=== PATIENT | male | born 1970 | race African-American/Black ===

== ENCOUNTER 2017-03-13 10:07 | Emergency (ER) | payer MEDICAID, SELFPAY ==
[2017-03-13] MEDS ORDERED: EPINEPHrine 1 MG/10 ML Abboject SYRINGE ONE (10:11)
[2017-03-13] MEDS ORDERED: EPINEPHrine 1 mg/ml MDV (1ml Charge) ONE (10:12)
[2017-03-13 10:29] LABS: #Basophils 0.1 thou/uL (0.0-0.2); #Eosinphils 0.2 thou/uL (0.0-0.7); #Lymphocytes 2.9 thou/uL (1.20-3.40); #Monocytes 0.6 thou/uL (0.11-0.59); #Neutrophils 4.8 thou/uL (1.40-6.50); %Basophils 1.6 % (0.0-1.0); %Eosinophils 2.7 % (0.0-10.0); %Lymphocytes 33.5 % (21.0-51.0); %Monocytes 6.8 % (0.0-10.0); %Neutrophils 55.4 % (42.0-75.0); Hemoglobin 17.2 g/dL (14.0-18.0); Mean Corpuscular HGB CONC 33.3 g/dL (32.0-36.0); Mean Corpuscular Hemoglobin 28.5 pg (27.0-31.0); Mean Corpuscular Volume 85.5 fl (80.0-94.0); Mean Platelet Volume 6.3 fL (7.4-10.4); Platelet Count 336 thou/uL (130-400); RBC Distribution Width 13.1 % (11.5-14.5); Red Blood Cell (RBC) Count 6.03 mill/uL (4.70-6.10); White Blood Cell (WBC) Count 8.6 thou/uL (4.8-10.8)
[2017-03-13] MEDS ORDERED: diphenhydrAMINE HCl 50 MG/ML 1 ML VIAL ONE (10:29)
[2017-03-13] MEDS ORDERED: methylPREDNISolone Sod Succ/PF 125 MG/2 ML VIAL ONE (10:29)
[2017-03-13 10:34] LABS: INR-International Normal Ratio 1.1; Prothrombin Time 14.4 SEC (12.0-14.7)
[2017-03-13 10:40] LABS: PTT 21.9 SEC (22.9-36.1)
[2017-03-13 10:44] LABS: ALT (SGPT) 18 U/L (8-55); AST (SGOT) 29 U/L (5-34); Albumin 4.2 g/dL (3.5-5.0); Alkaline Phosphatase 104 U/L (40-150); Anion Gap 20 mmol/L (10-20); BUN (Urea Nitrogen) 23 mg/dL (8.9-20.6); Bilirubin, Total 0.7 mg/dL (0.2-1.2); Calc. Creatinine Clearance 0 mL/min (70-130); Calcium 9.3 mg/dL (7.8-10.44); Carbon Dioxide 21 mmol/L (22-29); Chloride 105 mmol/L (98-107); Estimated GFR-MDRD 45; Globulin 3.5 g/dL (2.4-3.5); Glucose 131 mg/dL (70-105); Protein, Total 7.7 g/dL (6.0-8.3); Sodium 143 mmol/L (136-145)
[2017-03-13 10:45] LABS: Potassium 2.9 mmol/L (3.5-5.1); Troponin I Less than 0.010 ng/mL (< 0.028)
[2017-03-13] MEDS ORDERED: Potassium Chloride 20 MEQ TAB ONE (10:55)
== END 2017-03-13 12:30 | disposition home or self-care (01) ==
LOC: BURERS 10:07
DX: T63.441A Toxic effect of venom of bees, accidental (unintentional), initial encounter (principal); T78.2XXA Anaphylactic shock, unspecified, initial encounter; E87.6 Hypokalemia
CPT/HCPCS: 36416; 80053; 82553; 84484; 85025; 85610; 85730; 93005; 94760; 96361; 96372; 96374; 96375; J0171; J1200; J2930